=== PATIENT | male | born 1940 | race Caucasian/White ===

== ENCOUNTER 2016-12-07 10:06 | Day surgery (SDC) | payer MEDICARE ==
[~2016-12-07 10:06] MED LIST: LACTATED RINGERS 1,000 ML IV SCH
[2016-12-07] MEDS ORDERED: IV START KIT ONE (10:10)
[2016-12-07] MEDS ORDERED: LACTATED RINGERS 1,000 ML ONE (10:10)
[2016-12-07] MEDS ORDERED: PROPOFOL 40 ML IV ONE (10:19)
[2016-12-07] MEDS ORDERED: LIDOCAINE Viscous 2% 15 ML UDCUP ONE (10:19)
[2016-12-07 15:46] LABS: HELICOBACTER PYLORII DETECTION NEGATIVE (NEGATIVE)
--- NOTE | 2016-12-13 15:31 | SURGPATH ---
[facility] [address] [place] [id number] Patient Name: YONNY NORTON MR#: [id number] : 1940 Gender: M Specimen #: [id number] Collected: 12/07/2016 Received: 12/08/2016 Reported: 12/11/2016 Submitting Phys: JOSE MANUEL KELLER Copy To Phys: [facility] Clinical History / Pre-Operative Diagnosis: DYSPHAGIA WITH HEARTBURN; HISTORY OF MULTIPLE COLON POLYPS Specimen Source / Surgical Procedure Performed: #1-ANTRAL BIOPSY; #2-HEPATIC FLEXURE COLON POLYP; #3-MID ASCENDING COLON POLYP X2 Interpretation: 1. STOMACH, ANTRUM, BIOPSY: - NO DIAGNOSTIC ABNORMALITIES 2. COLON, HEPATIC FLEXURE, POLYP, POLYPECTOMY: - TUBULAR ADENOMA 3. COLON, MID ASCENDING, POLYPS X2, POLYPECTOMIES: - MULTIPLE FRAGMENTS OF TUBULAR ADENOMAS Electronically Signed Out Ivonne Roberson M.D. Gross Description: #1 The specimen is received in a formalin filled container labeled with the patient's name and "antral biopsy". Two irwin biopsies are each 0.5 cm. Totally embedded in cassette #1. #2 The specimen is received in a formalin filled container labeled with the patient's name and "hepatic flexure colon polyp". Two irwin biopsies are 0.3 and 0.7 cm. Totally embedded in cassette #2. #3 The specimen is received in a formalin filled container labeled with the patient's name and "mid-ascending colon polyp x2". Multiple polypoid irwin biopsy fragments are together 1.5 x 1.0 x 0.5 cm. Totally embedded in cassette #3. Aric Kirby Microscopic Description: Part 1: Sections show gastric antral and oxyntic mucosa with overall intact architecture. No significant active or chronic inflammation is seen. No Helicobacter organisms are seen on routine stain. No dysplasia or malignancy is seen. Part 2: A single fragment of colonic mucosa is seen with crowded glands lined by hyperchromatic nuclei. No high-grade dysplasia or carcinoma is seen. Part 3: Twelve fragments of colonic mucosa are seen, which show crowded glands lined by hyperchromatic crowded epithelial cells. No high-grade dysplasia or carcinoma is seen. 1: [id number] 2: [id number] 3: 75432 R13.10 D12.3 D12.2
== END 2016-12-07 12:20 | disposition home or self-care (01) ==
LOC: SDC 10:06
PROVIDERS: ATTEND Internal Medicine Gastroenterology
PROC: 0DBK8ZX Excision of Ascending Colon, Via Natural or Artificial Opening Endoscopic, Diagnostic (ICD-10-PCS; principal; 2016-12-07)
PROC: 0DB68ZX Excision of Stomach, Via Natural or Artificial Opening Endoscopic, Diagnostic (ICD-10-PCS; 2016-12-07)
PROC: 0DBL8ZX Excision of Transverse Colon, Via Natural or Artificial Opening Endoscopic, Diagnostic (ICD-10-PCS; 2016-12-07)
DX: Z12.11 Encounter for screening for malignant neoplasm of colon (principal); D12.3 Benign neoplasm of transverse colon; K29.70 Gastritis, unspecified, without bleeding; K29.80 Duodenitis without bleeding; Z86.010 Personal history of colon polyps; Z87.891 Personal history of nicotine dependence; I10 Essential (primary) hypertension; Z86.711 Personal history of pulmonary embolism; Z79.01 Long term (current) use of anticoagulants; Z95.828 Presence of other vascular implants and grafts
CPT/HCPCS: 43239; 45385; 87081; A9270; J7120